=== PATIENT | female | born 1970 | race Two or more races ===

== ENCOUNTER 2019-06-17 19:57 | Emergency (ER) | payer MEDICARE ==
[~2019-06-17 19:57] MED LIST: ATOR20TA PO; HORMONE REPLACEMENT; LISI10TA5 PO
--- NOTE | 2019-06-17 21:21 | NUR ---
CALLED PT TO BE TRIAGED, NO ANSWER. PER ADMITTING DEPT, PT LEFT BEFORE BEING SEEN
== END 2019-06-17 21:22 | disposition left against medical advice (07) ==
LOC: ER 20:03
DX: Z53.21 Procedure and treatment not carried out due to patient leaving prior to being seen by health care provider (principal)